=== PATIENT | male | born 2005 | race African-American/Black ===

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

== ENCOUNTER 2024-06-03 23:54 | Emergency (ER) | payer BC, OTHER ==
[2024-06-04] MEDS ORDERED: Acetaminophen 500 MG TAB ONE (00:23)
[2024-06-04] MEDS ORDERED: Bacitracin Zinc Ointment 30 gm TUBE TOP SCH (00:45)
[2024-06-04] MEDS ORDERED: fentaNYL 50 mcg/mL 1 mL Vial ONE (01:04)
== END 2024-06-04 01:45 | disposition home or self-care (01) ==
LOC: ERS 23:54
DX: T21.21XA Burn of second degree of chest wall, initial encounter (principal); T23.291A Burn of second degree of multiple sites of right wrist and hand, initial encounter; S60.211A Contusion of right wrist, initial encounter; X08.8XXA Exposure to other specified smoke, fire and flames, initial encounter
CPT/HCPCS: 96374; J3010